=== PATIENT | male | born 1950 | race Caucasian/White ===

== ENCOUNTER 2021-10-08 10:36 | Day surgery (SDC) | payer MEDICARE, OTHER ==
[2021-10-08] MEDS ORDERED: LACTATED RINGERS 1,000 ML IV ONE ×2 (11:19→13:19)
--- NOTE | 2021-10-08 11:29 | ANESTHESIA ---
Pre-Anesthesia VS, & Labs - Diagnosis history of polyps - Procedure colonoscopy Vital Signs: Temp Pulse Resp BP Pulse Ox 36.3 C L 80 22 128/82 H 100 10/08/21 11:00 10/08/21 11:00 10/08/21 11:00 10/08/21 11:00 10/08/21 11:00 Height: 5 ft 7 in Weight (kg): 96.8 kg Body Mass Index: 33.4 BMI Classification: Obese - NPO >8 hours Home Medications and Allergies Home Medications: Ambulatory Orders Colchicine [Colcrys] 0.6 mg PO DAILY 10/01/21 Aspirin [Adult Low Dose Aspirin EC] 81 mg PO DAILY 08/20/17 allopurinoL [Allopurinol] 300 mg PO DAILY 08/20/17 lisinopriL [Lisinopril] 20 mg PO DAILY 08/20/17 Colchicine [Colcrys] 0.6 mg PO DAILY 10/01/21 Allergies/Adverse Reactions: Allergies Allergy/AdvReac Type Severity Reaction Status Date / Time No Known Drug Allergies Allergy Verified 08/24/17 13:34 Anes History & Medical History - Anesthetic History Anesthesia Complications: reports: No previous complications - Medical History Cardiovascular: reports: Hypertension Pulmonary: reports: COPD Gastrointestinal: reports: Colon polyps Urinary: reports: Kidney stones Musculoskeletal: reports: Osteoarthritis, Gout, Chronic back pain Endocrine/Autoimmune: reports: None Skin: reports: None Smoking Status: Former smoker Psychosocial: reports: Other ([place] vet) - Surgical History Eyes Ears Nose Throat (EENT): reports: Cataracts Urologic: reports: Ureterolithotomy (stones) Orthopedic: reports: Other Exam General: Alert Dental: WNL Mouth Opening: Greater than 4 Fingerbreadths Neck Mobility: Normal Mallampati classification: II Respiratory: Lungs clear, Decreased breath sounds Cardiovascular: Regular rate Plan Anesthesia Type: Total IV Consent for Procedure(s) Verified and Reviewed: Yes Code Status: Attempt Resuscitation ASA classification: 3-Severe systemic disease Is this case an emergency?: No
[2021-10-08] MEDS ORDERED: PROPOFOL 500 MG/50 ML 500 MG/50 ML VIAL ONE (12:21)
[2021-10-08] MEDS ORDERED: MIDAZOLAM 2 MG/2 ML VIAL ONE (12:40)
--- NOTE | 2021-10-08 13:37 | ANESTHESIA POST OP EVALUATION ---
Anesthesia Post Eval - Post Anesthesia Eval Vitals: Last Vital Signs Temp 36.8 C 10/08/21 13:15 Pulse 70 10/08/21 13:15 Resp 20 10/08/21 13:15 BP 106/64 10/08/21 13:15 Pulse Ox 91 L 10/08/21 13:15 CV Function Including HR & BP: Stable Pain Control: Satisfactory Nausea & Vomiting: Negative Mental Status: Baseline Respiratory Status: Airway Patent Hydration Status: Satisfactory Anesthesia Complications: None
[2021-10-08 14:02] VITALS: BP 104/67
--- NOTE | 2021-10-08 14:53 | ANESTHESIA POST OP EVALUATION ---
Anesthesia Post Eval - Post Anesthesia Eval Vitals: Last Vital Signs Temp 36.4 C L 10/08/21 13:45 Pulse 72 10/08/21 13:45 Resp 16 10/08/21 13:45 BP 104/67 10/08/21 13:45 Pulse Ox 95 10/08/21 13:45 CV Function Including HR & BP: Stable Pain Control: Satisfactory Nausea & Vomiting: Negative Mental Status: Baseline Respiratory Status: Airway Patent Hydration Status: Satisfactory Anesthesia Complications: None
== END 2021-10-08 10:37 | disposition home or self-care (01) ==
LOC: SDS 10:36
PROVIDERS: ATTEND Surgery
DX: Z12.11 Encounter for screening for malignant neoplasm of colon (principal); K57.30 Diverticulosis of large intestine without perforation or abscess without bleeding; K64.4 Residual hemorrhoidal skin tags; K64.8 Other hemorrhoids; J44.9 Chronic obstructive pulmonary disease, unspecified; E66.9 Obesity, unspecified; I10 Essential (primary) hypertension; Z68.33 Body mass index [BMI] 33.0-33.9, adult; Z86.010 Personal history of colon polyps; Z87.891 Personal history of nicotine dependence
CPT/HCPCS: G0105; J7120

== ENCOUNTER 2023-05-10 08:49 | Outpatient (CLI) | payer MEDICARE, OTHER ==
--- NOTE | 2023-05-10 10:27 | Ultrasound Report ---
PROCEDURE: Abdomen Limited INDICATIONS: ELEVATED LIVER ENZYMES TECHNIQUE: Real-time focused scanning was performed of the abdomen, with image documentation. COMPARISONS: None. FINDINGS: Liver: Increased liver echogenicity, commonly mild hepatic steatosis. Gallbladder: Cholelithiasis without wall thickening. Biliary ducts: Intrahepatic bile ducts are non-dilated. Extrahepatic bile duct caliber measures 4.5 mm. Normal is 6-7 mm or less in diameter, or 10 mm or less post-cholecystectomy. Pancreas: Visualized portions of the pancreas are sonographically normal. Right kidney: Normal in size and echotexture. Right kidney measures 14.1 cm long. Large burden of no nobstructing stones, largest measuring 1.5 cm. No solid masses. No complex renal cystic lesions which require follow-up. Aorta: Visualized aorta is normal in caliber at less than 3 cm. IVC: Intrahepatic inferior vena cava is patent. Miscellaneous: No free abdominal fluid. IMPRESSION: Cholelithiasis without sonographic evidence of acute cholecystitis. Large burden of right-sided nonobstructing nephrolithiasis. Hepatic steatosis. Reviewed by: Spencer Ramos on 05/10/2023 10:25 AM PDT Approved by: Spencer Ramos on 05/10/2023 10:25 AM PDT Station ID: [id number]
== END 2023-05-10 08:50 | disposition home or self-care (01) ==
LOC: DI 08:49
PROVIDERS: ATTEND Internal Medicine
DX: R74.01 Elevation of levels of liver transaminase levels (principal); R11.0 Nausea; K80.20 Calculus of gallbladder without cholecystitis without obstruction; N20.0 Calculus of kidney; K76.0 Fatty (change of) liver, not elsewhere classified

== ENCOUNTER 2023-07-29 07:52 | Day surgery (SDC) | payer MEDICARE, OTHER ==
[2023-07-29] MEDS ORDERED: LACTATED RINGERS 1,000 ML IV ONE ×2 (08:29→10:08)
--- NOTE | 2023-07-29 09:16 | ANESTHESIA ---
Pre-Anesthesia VS, & Labs - Diagnosis epigastric pain - Procedure EGD Vital Signs: Temp Pulse Resp BP Pulse Ox O2 Flow Rate 36 C L 80 12 170/97 H 96 07/29/23 08:14 07/29/23 08:14 07/29/23 08:14 07/29/23 08:14 07/29/23 08:14 Height: 5 ft 7 in Weight (kg): 95.25 kg Body Mass Index: 32.8 BMI Classification: Obese - NPO >8 hours Home Medications and Allergies Aspirin [Adult Low Dose Aspirin EC] 81 mg PO DAILY 08/20/17 allopurinoL [Allopurinol] 300 mg PO DAILY 08/20/17 lisinopriL [Lisinopril] 20 mg PO DAILY 08/20/17 Colchicine [Colcrys] 0.6 mg PO DAILY 10/01/21 Allergies/Adverse Reactions: Allergies Allergy/AdvReac Type Severity Reaction Status Date / Time No Known Drug Allergies Allergy Verified 07/28/23 14:46 Anes History & Medical History - Anesthetic History Anesthesia Complications: reports: No previous complications - Medical History Cardiovascular: reports: Hypertension Pulmonary: reports: None Gastrointestinal: reports: None Urinary: reports: Kidney stones Neuro: reports: None Musculoskeletal: reports: Gout Endocrine/Autoimmune: reports: None Skin: reports: None Smoking Status: Former smoker Psychosocial: reports: Alcohol (3-4 beers per day) History of Cancer?: No - Surgical History Eyes Ears Nose Throat (EENT): reports: Cataracts, Tonsil/Adenoidectomy Urologic: reports: Ureterolithotomy (stones) Orthopedic: reports: Other Exam General: Alert, Oriented x3, Cooperative, No acute distress Dental: Dentures full Upper, Poor dentition Mouth Openin Fingerbreadth Neck Mobility: Normal Mallampati classification: III Thyromental Distance: 4-6 cm Mental/Cognitive Status: Alert/Oriented X3, Normal for patient Plan Anesthesia Type: General, Total IV Consent for Procedure(s) Verified and Reviewed: Yes Code Status: Attempt Resuscitation ASA classification: 2-Mild systemic disease Is this case an emergency?: No
[2023-07-29] MEDS ORDERED: PROPOFOL 500 MG/50 ML 500 MG/50 ML VIAL ONE (09:29)
[2023-07-29] MEDS ORDERED: LIDOCAINE-MPF 2% 5 ML VIAL ONE (09:37)
[2023-07-29 10:31] VITALS: O2SAT 95
[2023-07-29 10:41] VITALS: BP 138/85
--- NOTE | 2023-07-29 13:53 | ANESTHESIA POST OP EVALUATION ---
Anesthesia Post Eval - Post Anesthesia Eval Vitals: Last Vital Signs Temp 36.4 C L 07/29/23 10:08 Pulse 60 07/29/23 10:35 Resp 17 07/29/23 10:35 BP 138/85 H 07/29/23 10:35 Pulse Ox 95 07/29/23 10:35 O2 Flow Rate CV Function Including HR & BP: Stable Pain Control: Satisfactory Nausea & Vomiting: Negative Mental Status: Baseline Respiratory Status: Airway Patent Hydration Status: Satisfactory Anesthesia Complications: None
== END 2023-07-29 07:53 | disposition home or self-care (01) ==
LOC: SDS 07:52
PROVIDERS: ATTEND Surgery
PROC: 0DB78ZX Excision of Stomach, Pylorus, Via Natural or Artificial Opening Endoscopic, Diagnostic (ICD-10-PCS; principal; 2023-07-29 09:15)
DX: K29.80 Duodenitis without bleeding (principal); K29.20 Alcoholic gastritis without bleeding; K44.9 Diaphragmatic hernia without obstruction or gangrene; J44.9 Chronic obstructive pulmonary disease, unspecified; G47.30 Sleep apnea, unspecified; Z87.891 Personal history of nicotine dependence; E78.5 Hyperlipidemia, unspecified; E66.9 Obesity, unspecified; Z68.32 Body mass index [BMI] 32.0-32.9, adult; I10 Essential (primary) hypertension; R10.13 Epigastric pain
CPT/HCPCS: 43239; J7120

== ENCOUNTER 2023-10-08 09:01 | Outpatient (CLI) | payer MEDICARE, OTHER ==
[2023-10-08 09:30] LABS: CREATININE 1.2 mg/dL (0.6-1.3)
[2023-10-08] MEDS ORDERED: DIATRIZOATE MEGLU/DIATRIZO SOD 30 ML BOTTLE PO ONE (14:33)
[2023-10-08] MEDS ORDERED: iohexoL-300 100 ML VIAL IVP ONE (14:33)
--- NOTE | 2023-10-09 15:35 | CT Report ---
PROCEDURE: ABDOMEN/PELVIS W INDICATIONS: EPIGASTRIC PAIN, DUODENITIS WITHOUT BLEEDING CONTRAST: 100ml omni 300 TECHNIQUE: After the administration of intravenous contrast, 5 mm thick sections acquired from the diaphragms to the symphysis. 5 mm thick coronal and sagittal reformats were acquired. For radiation dose reducti on, the following was used: automated exposure control, adjustment of mA and/or kV according to weston ent size. COMPARISON: None. FINDINGS: Image quality: Excellent. Lung bases and heart: Calcified granuloma. Liver: Hepatic steatosis. Calcified granuloma. Gallbladder and biliary tree: Cholelithiasis without wall thickening. No biliary dilation. Spleen: Calcified granuloma. Pancreas: No pancreatic ductal dilation. 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 Adrenals: No adrenal nodule. Kidneys and ureters: No hydronephrosis. No renal cystic lesion which requires follow up. No solid mas s. A few nonobstructing renal stones measuring 1.5 cm, 1.2 cm and 1.1 cm. Hounsfield units are 400-50 0. Bowel and peritoneum: No bowel distension. No pathologic free fluid. Lymph nodes: No central or retroperitoneal adenopathy. Vessels: No infrarenal aortic aneurysm. PELVIS Reproductive organs: Unremarkable. Bladder: No abnormal wall thickening, accounting for underdistension. Pelvic lymph nodes: No pelvic adenopathy by size criteria. Bones: No aggressive osseous abnormality. Other: No significant ventral or inguinal hernia. IMPRESSION: No findings of active duodenitis. Right-sided nonobstructing nephrolithiasis, stones measuring between 1.1 cm and 1.5 cm. Cholelithiasis without evidence of acute cholecystitis. Sequela of prior granulomatous disease. Reviewed by: Spencer Ramos MD on 10/09/2023 3:34 PM PST Approved by: Spencer Ramos MD on 10/09/2023 3:34 PM PST Station ID: [id number]
== END 2023-10-08 09:02 | disposition home or self-care (01) ==
LOC: LAB 09:01
PROVIDERS: ATTEND Internal Medicine
DX: K29.80 Duodenitis without bleeding (principal); R10.13 Epigastric pain; K29.70 Gastritis, unspecified, without bleeding; Z79.899 Other long term (current) drug therapy; N20.0 Calculus of kidney; K80.20 Calculus of gallbladder without cholecystitis without obstruction
CPT/HCPCS: 36415; 74177; 82565; Q9963; Q9967

== ENCOUNTER 2024-04-12 07:42 | Outpatient (CLI) | payer MEDICARE, OTHER ==
--- NOTE | 2024-04-12 08:19 | CARDIAC PROCEDURE NOTE ---
Stress Test Report Service Date: 04/12/24 Service Time: 08:00 Ordering Provider: Norma Robertson MD Indication for Test: Assess chest discomfort. Significant Medical History: Dany is referred for a treadmill stress echocardiogram, to assess intermittent exertional chest discomfort occurring over the past approximately 8 months. He dates onset back to the fall, around the time that he was undergoing a GI evaluation and subsequent procedures, which largely have resolved symptoms from that organ system. He reports that with activities such as chopping wood, doing yard work or other types of home maintenance activities he often has a combination of limiting shortness of breath and pressure-like central substernal chest discomfort. He is able to do several hours of work in sum, but this requires stopping every 5 minutes or so to sit and recover from the symptoms. Thus he describes his stamina as poor. He has not had an evaluation for his lung disease nor treatment with bronchodilators, though he has started taking Spiriva recently. This has not been especially helpful, in his estimation. He has been on lisinopril for some time that he takes every morning, as well as a daily baby aspirin. In 2016 he had a transthoracic echocardiogram that showed normal right and left ventricular systolic function, with mild diastolic dysfunction, aortic valve sclerosis without stenosis and no evidence of elevated PA/RV systolic pressures. He lives at home with his who has significant Alzheimer's disease, but does not require physical help for her care. He has 3 daughters who live nearby, who can assist their parents with their care. One of them is a computer language coder here at [facility] [employer] and serves as his DPOA, per his description. Cardiac Risk Factors: Positive for treated hypertension; negative for known hyperlipidemia, diabetes, family history of premature atherosclerosis/known CAD. He was a tobacco smoker for over 40 years but quit approximately 12 years ago, so this would not be considered an active risk. Type of Stress Test: ETT with Echocardiography Procedure: -Exercise Treadmill Test- After signing informed consent, the patient underwent echo imaging at rest and then performed treadmill exercise using a Demetri protocol. The patient exercised for 3 minutes 47 seconds and achieved a peak heart rate of 120 (81 percent predicted maximum heart rate for age), and an estimated workload of 5.6 METS. The test was terminated due to fatigue/shortness of breath, chest discomfort and lightheadedness. Resting heart rate: 82 Peak heart rate: 120 Normal response to exercise. Resting BP: 150/74 Peak BP: 144/74 Hypertensive at rest with abnormal systolic BP decrease with exercise. The patient's resting room air oxygen saturation was initially 88%, then increased to 94%, with a single reading of 90% in stage 1 followed by sequential increase back to 94%. Rhythm during exercise: Sinus rhythm throughout, with rare isolated PACs, no PVCs documented. Symptoms: As above, the combination of dyspnea, chest discomfort and precipitous onset of lightheadedness required termination of exercise in early stage 2. EKG at rest showed normal sinus rhythm with left atrial abnormality and early precordial R/S transition.. EKG at peak stress showed downsloping ST depression of at least 1.0 mm, with T- wave inversion, meeting diagnostic EKG criteria for ischemia and early stage II, present in leads II, III, aVF, V3, V4, V5 and V6. In Recovery chest discomfort increased incrementally, with persistence of ST depression and T wave inversion, for which he was administered a single sublingual nitroglycerin at approximately 2:30. Within about 3 minutes he reported full relief of his chest discomfort, which was more rapid than experie nced spontaneously without nitroglycerin administration. By 12 minutes of EKG monitoring his ST-T wave pattern had normalized and he remained pain-free at the time of discharge from the stress lab. Echo imaging, performed at rest and with stress, will be reported separately. Van Garsia MD, was present throughout this treadmill stress study and supervised it in its entirety. Summary: 1) Exercise tolerance was markedly reduced for age and sex as evidenced by ERIC of 34%. 2) Normal resting EKG. 3) Although he only achieved 81% of maximal predicted heart rate for age, the occurrence of symptoms and ST depression indicated that an adequate level of exercise was achieved on this treadmill stress test. 4) Hypertensive at rest with abnormal decrease of systolic BP in response to exercise. 5) Ischemic changes by EKG criteria were seen at peak exercise and into recovery, with resolution over ~12 minutes. 6) Echo image interpretation reveals normal resting left ventricular size, wall thickness and systolic function, with sclerosis and mild stenosis of the aortic valve (gradient ~25 mmHg); without elevation of estimated pulmonary artery systolic pressure seen on screening study. Following peak stress, there was evidence of hypokinesis of the mid-distal septum, distal inferior and distal anterior acuna, consistent with inducible ischemia. See separate report for more details. Conclusions and Recommendations: 1) This treadmill stress echocardiogram study was abnormal, with ischemia by s eugenios, EKG and inducible apical hypokinesis on echocardiogram. 2) The patient did respond to a sublingual nitroglycerin given early in Recovery with acceleration of relief of his chest discomfort, followed by normalization of his EKG during an extended period of post-exercise monitoring. 3) I recommended to the patient that he continue taking a daily baby aspirin and limit his activities to only those necessary for self-care and simple tasks around the home such as taking out the trash. He will work with his family members to get help with other tasks needed around the home. 4) I have reached out to the referring provider, Dr. Robertson, and will recommend initiation of high-dose contemporary potent statin and provision of a prescription for sublingual nitroglycerin. I will recommend that she work with a [facility] cardiology provider group, to accelerate an evaluation that should include coronary angiography and evaluation for revascularization in the near future. 5) He should also undergo pulmonary function testing when more stable and either formal pulmonary evaluation or PFTguided modification of therapy, that would likely include a bronchodilator agent and inhaled corticosteroid. Spiriva typically is beneficial when there is significant secretions/phlegm production, but that does not appear to be the case for this patient.
== END 2024-04-12 07:43 | disposition home or self-care (01) ==
LOC: DI 07:42
PROVIDERS: ATTEND Internal Medicine
DX: R07.9 Chest pain, unspecified (principal); J44.9 Chronic obstructive pulmonary disease, unspecified; R01.1 Cardiac murmur, unspecified; I35.0 Nonrheumatic aortic (valve) stenosis; I10 Essential (primary) hypertension; I25.9 Chronic ischemic heart disease, unspecified; Z87.891 Personal history of nicotine dependence
CPT/HCPCS: 93350

== ENCOUNTER 2024-06-15 10:53 | Outpatient (CLI) | payer MEDICARE, OTHER ==
[2024-06-15 11:06] LABS: BASOPHILS # (AUTO) 0.1 10^3/uL (0.0-0.1); BASOPHILS % (AUTO) 0.7 %; EOSINOPHILS # (AUTO) 0.2 10^3/uL (0.0-0.7); EOSINOPHILS % (AUTO) 1.7 %; HCT - HEMATOCRIT 45.9 % (42.0-52.0); HGB - HEMOGLOBIN 14.9 g/dL (14.0-18.0); LYMPHOCYTES # (AUTO) 2.8 10^3/uL (1.5-3.5); LYMPHOCYTES % (AUTO) 27.7 %; MEAN CORPUSCULAR HEMOGLOBIN 32.2 pg (27.0-31.0); MEAN CORPUSCULAR HGB CONC 32.5 g/dL (32.0-36.0); MEAN CORPUSCULAR VOLUME 99.1 fL (80.0-94.0); MEAN PLATELET VOLUME 10.2 fL (7.4-11.4); MONOCYTES # (AUTO) 1.4 10^3/uL (0.0-1.0); MONOCYTES % (AUTO) 13.6 %; NEUTROPHILS # (AUTO) 5.6 10^3/uL (1.5-6.6); NEUTROPHILS % (AUTO) 55.8 %; PLT - PLATELET COUNT 207 10^3/uL (130-450); RED BLOOD COUNT 4.63 10^6/uL (4.70-6.10); RED CELL DISTRIBUTION WIDTH 13.7 % (12.0-15.0); WHITE BLOOD COUNT 10.1 x10^3/uL (4.8-10.8)
[2024-06-15 11:15] LABS: CREATININE 1.1 mg/dL (0.6-1.3); POTASSIUM 4.2 mmol/L (3.5-4.5)
== END 2024-06-15 10:54 | disposition home or self-care (01) ==
LOC: LAB 10:53
PROVIDERS: ATTEND Internal Medicine
DX: R94.39 Abnormal result of other cardiovascular function study (principal)
CPT/HCPCS: 36415; 80048; 85025